=== PATIENT | male | born 1945 | race Caucasian/White ===

== ENCOUNTER → 2016-06-30 | Outpatient (CLI) | payer MEDICARE, OTHER | LOC: LAB 10:00 → EDSTATUS 10:29 | DX: E87.5 Hyperkalemia (principal); N18.3 Chronic kidney disease, stage 3 (moderate); R80.9 Proteinuria, unspecified; E13.9 Other specified diabetes mellitus without complications; Z12.5 Encounter for screening for malignant neoplasm of prostate ==

== ENCOUNTER → 2016-07-07 | Outpatient (CLI) | payer MEDICARE, OTHER | LOC: LAB 08:24 | DX: E87.5 Hyperkalemia (principal) ==

== ENCOUNTER → 2016-10-05 | Outpatient (CLI) | payer MEDICARE, OTHER | LOC: LAB 09:35 | DX: E13.9 Other specified diabetes mellitus without complications (principal) ==

== ENCOUNTER → 2017-03-23 | Outpatient (CLI) | payer MEDICARE, OTHER ==
[2017-03-23 09:39] LABS: EOS # 0.2 (0.04-0.40); EOS % 2.4 % (0.0-4.0); HEMOGLOBIN 13.8 g/dL (13.5-18.0); LYMPH# 1.5 (1.50-4.00); MEAN CELL VOLUME 88 fl (78-100); MEAN CORPUSCULAR HEMOGLOBIN 28 pg (27-31); MEAN CORPUSCULAR HGB CONC 32 g/dL (33-37); MEAN PLATELET VOLUME 10.4 fl (7.4-10.4); MONO # 0.8 (0.20-0.80); NEU # 4.1 (1.40-6.50); PLATELET COUNT 151 K/mm3 (130-400); RED BLOOD COUNT 4.89 M/mm3 (4.20-5.60); RED CELL DISTRIBUTION WIDTH 12.9 % (11.5-14.5); WHITE BLOOD COUNT 6.7 K/mm3 (4.8-10.8)
[2017-03-23 09:56] LABS: BUN/CREATININE RATIO 20.2 (6.0-26.0); CALCIUM 8.7 mg/dL (8.4-10.2); POTASSIUM 4.8 mmol/L (3.6-5.0)
== END ==
LOC: LAB 08:54
PROVIDERS: Internal Medicine
DX: N18.3 Chronic kidney disease, stage 3 (moderate) (principal); R80.8 Other proteinuria

== ENCOUNTER → 2017-04-19 | Outpatient (CLI) | payer MEDICARE, OTHER | LOC: LAB 10:49 | DX: E13.9 Other specified diabetes mellitus without complications (principal); I10 Essential (primary) hypertension ==

== ENCOUNTER → 2017-04-25 | Outpatient (CLI) | payer MEDICARE, OTHER ==
[2017-04-25 12:02] LABS: BUN/CREATININE RATIO 20.8 (6.0-26.0); CALCIUM 8.8 mg/dL (8.4-10.2)
== END ==
LOC: LAB 11:24
PROVIDERS: Internal Medicine
DX: N18.3 Chronic kidney disease, stage 3 (moderate) (principal)

== ENCOUNTER → 2017-06-21 | Outpatient (CLI) | payer MEDICARE, OTHER ==
[2017-06-21 16:41] LABS: BUN/CREATININE RATIO 16.8 (6.0-26.0); CALCIUM 8.5 mg/dL (8.4-10.2); POTASSIUM 4.6 mmol/L (3.6-5.0)
== END ==
LOC: LAB 15:23
PROVIDERS: Internal Medicine
DX: R80.8 Other proteinuria (principal); N18.3 Chronic kidney disease, stage 3 (moderate)

== ENCOUNTER → 2017-07-06 | Outpatient (CLI) | payer MEDICARE, OTHER | LOC: LAB 10:31 | DX: I10 Essential (primary) hypertension (principal); E11.9 Type 2 diabetes mellitus without complications ==

== ENCOUNTER → 2017-09-22 | Outpatient (CLI) | payer MEDICARE, OTHER ==
[2017-09-22 16:37] LABS: HEMATOCRIT 37.4 % (42.0-52.0); HEMOGLOBIN 12.3 g/dL (13.5-18.0); MEAN CELL VOLUME 89 fl (78-100); MEAN CORPUSCULAR HEMOGLOBIN 29 pg (27-31); MEAN CORPUSCULAR HGB CONC 33 g/dL (33-37); MEAN PLATELET VOLUME 9.8 fl (7.4-10.4); PLATELET COUNT 163 K/mm3 (130-400); RED BLOOD COUNT 4.21 M/mm3 (4.20-5.60); RED CELL DISTRIBUTION WIDTH 13.3 % (11.5-14.5); WHITE BLOOD COUNT 6.5 K/mm3 (4.8-10.8)
[2017-09-22 17:37] LABS: BUN/CREATININE RATIO 15.6 (6.0-26.0); CALCIUM 8.5 mg/dL (8.4-10.2); POTASSIUM 4.8 mmol/L (3.6-5.0)
[2017-09-22 18:14] LABS: LYMPHOCYTE 18 % (20-51); MONOCYTE 8 % (3-10); NEUTROPHILS 70 % (42-75)
== END ==
LOC: LAB 16:11
PROVIDERS: Internal Medicine
DX: I12.9 Hypertensive chronic kidney disease with stage 1 through stage 4 chronic kidney disease, or unspecified chronic kidney disease (principal); N18.3 Chronic kidney disease, stage 3 (moderate); E87.5 Hyperkalemia; R80.8 Other proteinuria

== ENCOUNTER → 2017-11-17 | Outpatient (CLI) | payer MEDICARE, OTHER ==
[2017-11-17 14:26] LABS: HEMATOCRIT 38.7 % (42.0-52.0); HEMOGLOBIN 12.5 g/dL (13.5-18.0)
[2017-11-17 20:54] LABS: CALCIUM 8.8 mg/dL (8.4-10.2); POTASSIUM 5.5 mmol/L (3.6-5.0)
[2017-11-18 16:22] LABS: PTH,INTACT 264.7 pg/mL (6.6-88.9)
[2017-11-18 16:25] LABS: HEPATITIS B SURFACE ANTIBODY <2.0 (())
== END ==
LOC: LAB 13:28
PROVIDERS: Internal Medicine
DX: Z12.5 Encounter for screening for malignant neoplasm of prostate (principal); E11.22 Type 2 diabetes mellitus with diabetic chronic kidney disease; E11.65 Type 2 diabetes mellitus with hyperglycemia; I12.9 Hypertensive chronic kidney disease with stage 1 through stage 4 chronic kidney disease, or unspecified chronic kidney disease; N18.3 Chronic kidney disease, stage 3 (moderate); E87.5 Hyperkalemia; R80.8 Other proteinuria

== ENCOUNTER → 2017-12-06 | Outpatient (CLI) | payer MEDICARE, OTHER ==
[2017-12-06 12:10] LABS: HEMATOCRIT 38.5 % (42.0-52.0); HEMOGLOBIN 12.6 g/dL (13.5-18.0); MEAN CELL VOLUME 88 fl (78-100); MEAN CORPUSCULAR HEMOGLOBIN 29 pg (27-31); MEAN CORPUSCULAR HGB CONC 33 g/dL (33-37); MEAN PLATELET VOLUME 10.6 fl (7.4-10.4); PLATELET COUNT 163 K/mm3 (130-400); RED BLOOD COUNT 4.39 M/mm3 (4.20-5.60); RED CELL DISTRIBUTION WIDTH 12.9 % (11.5-14.5); WHITE BLOOD COUNT 5.8 K/mm3 (4.8-10.8)
[2017-12-06 12:11] LABS: CALCIUM 8.9 mg/dL (8.4-10.2); POTASSIUM 4.8 mmol/L (3.6-5.0)
[2017-12-06 12:38] LABS: LYMPHOCYTE 21 % (20-51); MONOCYTE 12 % (3-10); NEUTROPHILS 65 % (42-75)
[2017-12-07 09:13] LABS: PTH,INTACT 261.8 pg/mL (6.6-88.9)
== END ==
LOC: LAB 10:54
PROVIDERS: Internal Medicine
DX: E11.22 Type 2 diabetes mellitus with diabetic chronic kidney disease (principal); I12.9 Hypertensive chronic kidney disease with stage 1 through stage 4 chronic kidney disease, or unspecified chronic kidney disease; N18.4 Chronic kidney disease, stage 4 (severe); R80.8 Other proteinuria

== ENCOUNTER → 2017-12-11 | Outpatient (CLI) | payer MEDICARE, OTHER ==
[2017-12-11 21:09] LABS: URINE TOTAL VOLUME 1150 mL
== END ==
LOC: LAB 16:51
PROVIDERS: Internal Medicine
DX: N18.4 Chronic kidney disease, stage 4 (severe) (principal); R80.8 Other proteinuria

== ENCOUNTER → 2018-01-29 | Outpatient (CLI) | payer MEDICARE, OTHER ==
[2018-01-29 11:49] LABS: HEMATOCRIT 39.3 % (42.0-52.0); HEMOGLOBIN 12.9 g/dL (13.5-18.0)
[2018-01-29 12:03] LABS: ALBUMIN 4.3 g/dL (3.5-5.0); CALCIUM 8.8 mg/dL (8.4-10.2); POTASSIUM 4.7 mmol/L (3.6-5.0)
== END ==
LOC: LAB 11:35
PROVIDERS: Internal Medicine
DX: I12.9 Hypertensive chronic kidney disease with stage 1 through stage 4 chronic kidney disease, or unspecified chronic kidney disease (principal); N18.3 Chronic kidney disease, stage 3 (moderate); R80.8 Other proteinuria; E87.5 Hyperkalemia

== ENCOUNTER 2018-03-10 12:39 | Emergency (ER) | payer MEDICARE, OTHER ==
[~2018-03-10] VITALS: Ht 177.8 cm; Wt 100.0 kg
[2018-03-10] MEDS ORDERED: JANUVIA50 MG PO (13:18)
[2018-03-10] MEDS ORDERED: CALCITRIOL0.25 MCG PO (13:18)
[2018-03-10] MEDS ORDERED: FUROSEMIDE20 MG PO (13:19)
[2018-03-10] MEDS ORDERED: FUROSEMIDE40 MG PO (13:19)
[2018-03-10] MEDS ORDERED: AMARYL4 M1 PO (13:19)
[2018-03-10] MEDS ORDERED: APRESOLINE 25MG25 MG PO (13:20)
[2018-03-10] MEDS ORDERED: METOPROLOL SUCC50 M1 PO (13:20)
[2018-03-10] MEDS ORDERED: PROCARDIA XL90 M1 PO (13:20)
[2018-03-10] MEDS ORDERED: OCUFLOX5 ML OU (13:21)
[2018-03-10] MEDS ORDERED: RESTASIS 0.4 M0.4 M1 OU (13:21)
[2018-03-10] MEDS ORDERED: LEVEMIR100 U/M1 SC (13:21)
[2018-03-10 13:45] LABS: HEMATOCRIT 40.1 % (42.0-52.0); HEMOGLOBIN 13.1 g/dL (13.5-18.0); MEAN CELL VOLUME 87 fl (78-100); MEAN CORPUSCULAR HEMOGLOBIN 28 pg (27-31); MEAN CORPUSCULAR HGB CONC 33 g/dL (33-37); MEAN PLATELET VOLUME 10.3 fl (7.4-10.4); PLATELET COUNT 168 K/mm3 (130-400); RED BLOOD COUNT 4.63 M/mm3 (4.20-5.60); RED CELL DISTRIBUTION WIDTH 12.9 % (11.5-14.5); WHITE BLOOD COUNT 7.6 K/mm3 (4.8-10.8)
[2018-03-10 13:59] LABS: ALBUMIN 4.4 g/dL (3.5-5.0); CALCIUM 9.1 mg/dL (8.4-10.2); POTASSIUM 5.6 mmol/L (3.6-5.0); TOTAL BILIRUBIN 0.6 mg/dL (0.2-1.3); TOTAL PROTEIN 7.7 g/dL (6.3-8.2)
[2018-03-10 14:02] LABS: LYMPHOCYTE 17 % (20-51); MONOCYTE 10 % (3-10); NEUTROPHILS 69 % (42-75)
[2018-03-10 15:30] VITALS: BP 158/81
== END 2018-03-10 15:30 | disposition home or self-care (01) ==
LOC: ED 12:39
PROVIDERS: Family Medicine
DX: I12.9 Hypertensive chronic kidney disease with stage 1 through stage 4 chronic kidney disease, or unspecified chronic kidney disease (principal); E11.22 Type 2 diabetes mellitus with diabetic chronic kidney disease; E11.319 Type 2 diabetes mellitus with unspecified diabetic retinopathy without macular edema; H35.61 Retinal hemorrhage, right eye; N18.4 Chronic kidney disease, stage 4 (severe); H35.30 Unspecified macular degeneration; Z79.4 Long term (current) use of insulin; Z98.890 Other specified postprocedural states

== ENCOUNTER → 2018-03-14 | Outpatient (CLI) | payer MEDICARE, OTHER ==
[2018-03-10 15:30] VITALS: BP 158/81
[~2018-03-14] MED LIST: AMARYL4 M1 PO; APRESOLINE 25MG25 MG PO; CALCITRIOL0.25 MCG PO; FUROSEMIDE20 MG PO; FUROSEMIDE40 MG PO; JANUVIA50 MG PO; LEVEMIR100 U/M1 SC; METOPROLOL SUCC50 M1 PO; OCUFLOX5 ML OU; PROCARDIA XL90 M1 PO; RESTASIS 0.4 M0.4 M1 OU
[2018-03-14 08:53] LABS: CALCIUM 9.4 mg/dL (8.4-10.2); POTASSIUM 4.8 mmol/L (3.6-5.0)
== END ==
LOC: LAB 08:22
PROVIDERS: Family Medicine
DX: N18.9 Chronic kidney disease, unspecified (principal)

== ENCOUNTER → 2018-03-19 | Outpatient (CLI) | payer MEDICARE, OTHER ==
[2018-03-10 15:30] VITALS: BP 158/81
[2018-03-19 09:52] LABS: CALCIUM 9.1 mg/dL (8.4-10.2); POTASSIUM 4.3 mmol/L (3.6-5.0)
== END ==
LOC: LAB 09:18
PROVIDERS: Internal Medicine
DX: E11.22 Type 2 diabetes mellitus with diabetic chronic kidney disease (principal); N18.3 Chronic kidney disease, stage 3 (moderate); Z91.89 Other specified personal risk factors, not elsewhere classified

== ENCOUNTER → 2018-04-27 | Outpatient (CLI) | payer MEDICARE, OTHER ==
[2018-04-27 12:16] LABS: ALBUMIN 4.3 g/dL (3.5-5.0); CALCIUM 9.5 mg/dL (8.4-10.2); POTASSIUM 4.2 mmol/L (3.6-5.0)
== END ==
LOC: LAB 11:45
PROVIDERS: Internal Medicine
DX: I12.9 Hypertensive chronic kidney disease with stage 1 through stage 4 chronic kidney disease, or unspecified chronic kidney disease (principal); E87.5 Hyperkalemia

== ENCOUNTER → 2018-05-04 | Outpatient (CLI) | payer MEDICARE, OTHER ==
[2018-05-04 12:02] LABS: HEMATOCRIT 37.2 % (42.0-52.0); HEMOGLOBIN 12.2 g/dL (13.5-18.0); MEAN PLATELET VOLUME 9.9 fl (7.4-10.4); RED BLOOD COUNT 4.25 M/mm3 (4.20-5.60); RED CELL DISTRIBUTION WIDTH 12.9 % (11.5-14.5); WHITE BLOOD COUNT 6.1 K/mm3 (4.8-10.8)
[2018-05-04 12:24] LABS: ALBUMIN 4.3 g/dL (3.5-5.0); CALCIUM 9.4 mg/dL (8.4-10.2); TOTAL BILIRUBIN 0.6 mg/dL (0.2-1.3); TOTAL PROTEIN 7.5 g/dL (6.3-8.2)
== END ==
LOC: LAB 11:34
PROVIDERS: Internal Medicine Interventional Cardiology
DX: Z01.89 Encounter for other specified special examinations (principal)

== ENCOUNTER → 2018-05-10 | Outpatient (CLI) | payer MEDICARE, OTHER | LOC: RAD 05-09 12:42 | DX: Z95.818 Presence of other cardiac implants and grafts (principal) ==

== ENCOUNTER → 2018-05-25 | Outpatient (CLI) | payer MEDICARE, OTHER ==
[2018-05-25 09:54] LABS: CALCIUM 9.9 mg/dL (8.4-10.2); POTASSIUM 4.6 mmol/L (3.6-5.0)
== END ==
LOC: LAB 09:27
PROVIDERS: Family Medicine
DX: I50.9 Heart failure, unspecified (principal)

== ENCOUNTER → 2018-06-12 | Outpatient (CLI) | payer MEDICARE, OTHER ==
[2018-06-12 11:20] LABS: CALCIUM 9.1 mg/dL (8.4-10.2); POTASSIUM 4.5 mmol/L (3.6-5.0)
== END ==
LOC: LAB 10:52
PROVIDERS: Internal Medicine
DX: I12.9 Hypertensive chronic kidney disease with stage 1 through stage 4 chronic kidney disease, or unspecified chronic kidney disease (principal); N18.4 Chronic kidney disease, stage 4 (severe)

== ENCOUNTER → 2018-07-16 | Outpatient (CLI) | payer MEDICARE, OTHER ==
[2018-07-16 14:50] LABS: PROTHROMBIN TIME 9.9 SECONDS (9.0-12.0)
== END ==
LOC: LAB 13:54
PROVIDERS: Family Medicine
DX: E11.3312 Type 2 diabetes mellitus with moderate nonproliferative diabetic retinopathy with macular edema, left eye (principal); I48.91 Unspecified atrial fibrillation; Z79.4 Long term (current) use of insulin

== ENCOUNTER → 2018-09-28 | Outpatient (CLI) | payer MEDICARE, OTHER ==
[2018-09-28 13:35] LABS: HEMOGLOBIN 11.1 g/dL (13.5-18.0); MEAN PLATELET VOLUME 10.2 fl (7.4-10.4); RED CELL DISTRIBUTION WIDTH 13.7 % (11.5-14.5); WHITE BLOOD COUNT 5.9 K/mm3 (4.8-10.8)
[2018-09-28 13:44] LABS: ALBUMIN 3.9 g/dL (3.4-4.8); POTASSIUM 5.1 mmol/L (3.5-5.1)
[2018-09-28 13:45] LABS: PROTHROMBIN TIME 16.4 SECONDS (9.0-12.0)
[2018-09-28 13:46] LABS: CALCIUM 8.3 mg/dL (8.3-10.5)
== END ==
LOC: LAB 13:20
PROVIDERS: Family Medicine
DX: E11.22 Type 2 diabetes mellitus with diabetic chronic kidney disease (principal); I12.9 Hypertensive chronic kidney disease with stage 1 through stage 4 chronic kidney disease, or unspecified chronic kidney disease; I48.91 Unspecified atrial fibrillation; N18.4 Chronic kidney disease, stage 4 (severe)

== ENCOUNTER → 2019-01-04 | Outpatient (CLI) | payer MEDICARE, OTHER ==
[2019-01-04 09:23] LABS: POTASSIUM 4.8 mmol/L (3.5-5.1)
[2019-01-04 09:24] LABS: CALCIUM 9.2 mg/dL (8.3-10.5)
== END ==
LOC: LAB 08:56
PROVIDERS: Internal Medicine Nephrology
DX: E11.22 Type 2 diabetes mellitus with diabetic chronic kidney disease (principal); I12.9 Hypertensive chronic kidney disease with stage 1 through stage 4 chronic kidney disease, or unspecified chronic kidney disease; N18.4 Chronic kidney disease, stage 4 (severe); E21.1 Secondary hyperparathyroidism, not elsewhere classified

== ENCOUNTER → 2019-03-26 | Outpatient (CLI) | payer MEDICARE, OTHER ==
[2019-03-26 10:05] LABS: ALBUMIN 4.2 g/dL (3.4-4.8)
[2019-03-26 10:06] LABS: POTASSIUM 4.7 mmol/L (3.5-5.1)
[2019-03-26 22:49] LABS: PTH,INTACT 188.3 pg/mL (6.6-88.9)
[2019-03-26 22:53] LABS: HEPATITIS B SURFACE ANTIBODY <2.0 (()); HEPATITIS B SURFACE ANTIGEN Negative (Negative)
== END ==
LOC: LAB 09:46
PROVIDERS: Internal Medicine Nephrology
DX: I12.9 Hypertensive chronic kidney disease with stage 1 through stage 4 chronic kidney disease, or unspecified chronic kidney disease (principal); N18.4 Chronic kidney disease, stage 4 (severe); E21.1 Secondary hyperparathyroidism, not elsewhere classified

== ENCOUNTER → 2019-04-02 | Outpatient (CLI) | payer MEDICARE, OTHER ==
[2019-04-02 08:32] LABS: POTASSIUM 4.7 mmol/L (3.5-5.1)
[2019-04-02 08:34] LABS: CALCIUM 9.1 mg/dL (8.3-10.5)
== END ==
LOC: RAD 07:49
PROVIDERS: Internal Medicine Nephrology
DX: N18.3 Chronic kidney disease, stage 3 (moderate) (principal)

== ENCOUNTER 2019-06-04 15:13 | Emergency (ER) | payer MEDICARE, OTHER ==
[~2019-06-04] VITALS: Ht 177.8 cm; Wt 95.5 kg
[~2019-06-04 15:13] MED LIST changes: -AMIODARONE HCL100 MG PO; -ISOSORBIDE30 MG PO; -METOPROLOL SUC200 M1 PO; -SODIUM BIC650 MG/TAB PO; -VITAMIN D31250 MC1 PO
[2019-06-04 16:09] LABS: HEMATOCRIT 36.8 % (42.0-52.0); HEMOGLOBIN 11.6 g/dL (13.5-18.0); MEAN CELL VOLUME 91 fl (78-100); MEAN CORPUSCULAR HEMOGLOBIN 29 pg (27-31); MEAN CORPUSCULAR HGB CONC 32 g/dL (33-37); PLATELET COUNT 196 K/mm3 (130-400); RED BLOOD COUNT 4.06 M/mm3 (4.20-5.60); RED CELL DISTRIBUTION WIDTH 13.3 % (11.5-14.5); WHITE BLOOD COUNT 8.4 K/mm3 (4.8-10.8)
[2019-06-04 16:57] LABS: LYMPHOCYTE 13 % (20-51); MONOCYTE 10 % (3-10); NEUTROPHILS 76 % (42-75)
[2019-06-04] MEDS ORDERED: ISOSORBIDE30 MG PO (17:22)
[2019-06-04] MEDS ORDERED: AMIODARONE HCL100 MG PO (17:26)
[2019-06-04] MEDS ORDERED: SODIUM BIC650 MG/TAB PO (17:26)
[2019-06-04] MEDS ORDERED: METOPROLOL SUC200 M1 PO (17:27)
[2019-06-04] MEDS ORDERED: VITAMIN D31250 MC1 PO (17:33)
[2019-06-04 19:25] VITALS: BP 82/58
[2019-06-04 20:20] LABS: URINE APPEARANCE HAZY; URINE BILIRUBIN NEGATIVE (NEGATIVE); URINE BLOOD TRACE (NEGATIVE); URINE COLOR YELLOW; URINE GLUCOSE NEGATIVE (NEGATIVE); URINE KETONE NEGATIVE (NEGATIVE); URINE NITRATE NEGATIVE (NEGATIVE); URINE PROTEIN(semi-quant) 1+ mg/dL (NEGATIVE); URINE UROBILINOGEN NORMAL (NORMAL)
[2019-06-04 20:21] LABS: URINE LEUKOCYTE ESTERASE TRACE (NEGATIVE)
== END 2019-06-04 19:36 | disposition short-term general hospital (02) ==
LOC: ED 15:13
PROVIDERS: Internal Medicine; Nurse Practitioner Family
DX: I13.0 Hypertensive heart and chronic kidney disease with heart failure and stage 1 through stage 4 chronic kidney disease, or unspecified chronic kidney disease (principal); E11.22 Type 2 diabetes mellitus with diabetic chronic kidney disease; N18.9 Chronic kidney disease, unspecified; I50.9 Heart failure, unspecified; N17.9 Acute kidney failure, unspecified; I21.4 Non-ST elevation (NSTEMI) myocardial infarction; I95.9 Hypotension, unspecified; E11.42 Type 2 diabetes mellitus with diabetic polyneuropathy; E03.9 Hypothyroidism, unspecified; Z79.4 Long term (current) use of insulin
CPT/HCPCS: J7030

== ENCOUNTER → 2019-06-04 | Outpatient (CLI) | payer MEDICARE, OTHER ==
[~2019-06-04] MED LIST changes: +AMIODARONE HCL100 MG PO; -APRESOLINE 25MG25 MG PO; +HYDRALAZINE HYD50 MG PO; +ISOSORBIDE30 MG PO; +METOPROLOL SUC200 M1 PO; +SODIUM BIC650 MG/TAB PO; +VITAMIN D31250 MC1 PO
[2019-06-04 10:55] LABS: HEMATOCRIT 36.8 % (42.0-52.0); HEMOGLOBIN 11.6 g/dL (13.5-18.0); RED BLOOD COUNT 4.06 M/mm3 (4.20-5.60); RED CELL DISTRIBUTION WIDTH 13.3 % (11.5-14.5); WHITE BLOOD COUNT 8.4 K/mm3 (4.8-10.8)
[2019-06-04 11:02] LABS: POTASSIUM 5.2 mmol/L (3.5-5.1)
[2019-06-04 11:03] LABS: ALBUMIN 3.5 g/dL (3.4-4.8)
[2019-06-04 11:05] LABS: TOTAL PROTEIN 6.5 g/dL (6.2-8.1)
[2019-06-04 11:07] LABS: TOTAL BILIRUBIN 0.7 mg/dL (0.2-1.2)
[2019-06-04 11:29] LABS: TROPONIN-I 33.83 ng/mL (<0.030)
[2019-06-04 11:31] LABS: D-DIMER 2.55 mg/L FEU (0.15-0.50)
== END ==
LOC: LAB 10:34
PROVIDERS: Internal Medicine Interventional Cardiology
DX: E11.3312 Type 2 diabetes mellitus with moderate nonproliferative diabetic retinopathy with macular edema, left eye (principal); E11.22 Type 2 diabetes mellitus with diabetic chronic kidney disease; I12.9 Hypertensive chronic kidney disease with stage 1 through stage 4 chronic kidney disease, or unspecified chronic kidney disease; N18.4 Chronic kidney disease, stage 4 (severe)